=== PATIENT | male | born 1995 | race Caucasian/White ===

== ENCOUNTER 2018-09-08 18:51 | Emergency (ER) | payer OTHER ==
--- NOTE | 2018-09-08 20:28 | EDM.PDOC ---
ED HPI GENERAL MEDICAL PROBLEM - General Chief Complaint: Chest Pain Stated Complaint: CHEST PAIN SOB Time Seen by Provider: 09/08/18 19:16 Source of Information: Reports: Patient, RN Notes Reviewed, Other (Coworker) History Limitations: Reports: No Limitations - History of Present Illness INITIAL COMMENTS - FREE TEXT/NARRATIVE: The patient states that he went to bed around 22:00, then developed nausea, vomiting, and lightheadedness when upright. He states that his abdomen felt like "a knot". He went to work today, and worked hard, but felt short of breath , nauseated, and vomited 2 or 3 times. The patient states that he works outside , and the weather has been hot recently. He denies feeling thirsty. No recent watery diarrhea. No recent bad tasting or spoiled food. No recent antibiotics. No recent travel. No similarly ill close contacts. Here in the ED, the patient states that he has some nausea, and his sternum feels tight. The patient's PCP is in [place], [place]. Chest Pain Score (Numeric/FACES): 5 - Related Data Allergies Allergy/AdvReac Type Severity Reaction Status Date / Time No Known Allergies Allergy Verified 09/08/18 19:00 Home Meds: Home Meds . [No Known Home Meds] 09/08/18 [History] Past Medical History - Past Health History Medical/Surgical History: Denies Medical/Surgical History Social & Family History - Tobacco Use Smoking Status *Q: Former Smoker Years of Tobacco use: 3 Packs/Tins Daily: 0.5 Month/Year Tobacco Last Used: Quit 09/03/2018 - Caffeine Use Caffeine Use: Reports: Energy Drinks - Alcohol Use Alcohol Use History: Yes Alcohol Use Frequency: Socially (to excess on occasion) - Recreational Drug Use Recreational Drug Use: Yes Drug Use in Last 12 Months: Yes Recreational Drug Type: Reports: Marijuana/Hashish (last smoked August 2018) Recreational Drug Use Frequency: Socially - Living Situation & Occupation Living situation: Reports: Single, Other (with friends) Occupation: Employed ([employer]) ED ROS GENERAL - Review of Systems Review Of Systems: ROS reveals no pertinent complaints other than HPI. ED EXAM, GENERAL - Physical Exam Exam: See Below Exam Limited By: No Limitations General Appearance: Alert, WD/WN, No Apparent Distress Eye Exam: Bilateral Eye: EOMI, Normal Inspection Ears: Normal External Exam, Hearing Grossly Normal Nose: Normal Inspection Throat/Mouth: Normal Inspection, Normal Lips, Normal Voice, No Airway Compromise Head: Atraumatic, Normocephalic Neck: Normal Inspection, Full Range of Motion Respiratory/Chest: No Respiratory Distress, Lungs Clear, Normal Breath Sounds, No Accessory Muscle Use, Chest Non-Tender (to medial right pectoralis muscle, and pain not reproducible with pressing hands together in front of the chest or crossing the right arm across the chest), Other (Pectus excavatum) Cardiovascular: Normal Peripheral Pulses, Regular Rate, Rhythm, No Edema, No Gallop, No JVD, No Murmur, No Rub Peripheral Pulses: 4+: Radial (L), Radial (R) GI/Abdominal: Normal Bowel Sounds, Soft, Non-Tender, No Organomegaly, No Distention, No Abnormal Bruit, No Mass (Male) Exam: Deferred Rectal (Males) Exam: Deferred Back Exam: Normal Inspection, Full Range of Motion, NT Extremities: Normal Inspection, Normal Range of Motion, No Pedal Edema, Normal Capillary Refill Neurological: Alert, Oriented, Normal Cognition, No Motor/Sensory Deficits Psychiatric: Normal Affect Skin Exam: Warm, Dry, Intact, Normal Color, No Rash EKG INTERPRETATION EKG Date: 09/08/18 Time: 19:58 Rhythm: NSR Rate (Beats/Min): 60 [place]: Normal P-Wave: Enlarged (Possible LAE) QRS: Wide (Nonspecific intraventricular conduction delay) ST-T: Normal (J-point elevation/early repolarization respect to a healthy heart for age) QT: Normal Comparison: NA - No Prior EKG Course - Vital Signs Last Recorded V/S: Last Vital Signs Temp 36.8 C 09/08/18 18:57 Pulse 82 09/08/18 18:57 Resp 16 09/08/18 18:57 BP 141/85 H 09/08/18 18:57 Pulse Ox 98 09/08/18 18:57 Orthostatic Blood Pressure [ 129/79 Standing] Orthostatic Blood Pressure [ 136/78 Sitting] Orthostatic Blood Pressure [ 139/59 Supine] - Orders/Labs/Meds Labs: Laboratory Tests 09/08/18 09/08/18 09/08/18 Range/Units 19:00 19:00 19:00 WBC 10.12 H (4.23-9.07) K/mm3 RBC 5.42 (4.63-6.08) M/mm3 Hgb 16.5 (13.7-17.5) gm/L Hct 45.4 (40.1-51.0) % MCV 83.8 (79.0-92.2) fl MCH 30.4 (25.7-32.2) pg MCHC 36.3 H (32.2-35.5) g/dl RDW Std Deviation 38.9 (35.1-43.9) fL Plt Count 304 (163-337) K/mm3 MPV 9.5 (9.4-12.3) fl Neutrophils % (Manual) 69 H (40-60) % Band Neutrophils % 0 (0-10) % Lymphocytes % (Manual) 25 (20-40) % Atypical Lymphs % 0 % Monocytes % (Manual) 2 (2-10) % Eosinophils % (Manual) 2 (0.8-7.0) % Basophils % (Manual) 2 H (0.2-1.2) Platelet Estimate Adequate Plt Morphology Comment Normal RBC Morph Comment Normal D-Dimer, Quantitative < 0.19 L (0.19-0.50) mg/L Sodium 139 (136-145) mEq/L Potassium 3.8 (3.5-5.1) mEq/L Chloride 104 (98-107) mEq/L Carbon Dioxide 20 L (21-32) mEq/L Anion Gap 18.8 H (5-15) BUN 18 (7-18) mg/dL Creatinine 1.2 (0.7-1.3) mg/dL Est Cr Clr Drug Dosing 107.78 mL/min Estimated GFR (MDRD) > 60 (>60) mL/min BUN/Creatinine Ratio 15.0 (14-18) Glucose 94 (74-106) mg/dL Calcium 10.0 (8.5-10.1) mg/dL Magnesium 1.9 (1.8-2.4) mg/dl Total Bilirubin 1.7 H (0.2-1.0) mg/dL AST 30 (15-37) U/L ALT 27 (16-63) U/L Alkaline Phosphatase 72 (46-116) U/L Total Protein 8.7 H (6.4-8.2) g/dl Albumin 5.5 H (3.4-5.0) g/dl Globulin 3.2 gm/dL Albumin/Globulin Ratio 1.7 (1-2) Urine Color (Yellow) Urine Appearance (Clear) Urine pH (5.0-8.0) Ur Specific [place] (1.005-1.030) Urine Protein (Negative) Urine Glucose (UA) (Negative) Urine Ketones (Negative) Urine Occult Blood (Negative) Urine Nitrite (Negative) Urine Bilirubin (Negative) Urine Urobilinogen (0.2-1.0) Ur Leukocyte Esterase (Negative) Urine RBC (0-5) /hpf Urine WBC (0-5) /hpf Ur Squamous Epith Cells (0-5) /hpf Urine Bacteria (FEW) /hpf Urine Mucus (FEW) /hpf 09/08/18 Range/Units 21:21 WBC (4.23-9.07) K/mm3 RBC (4.63-6.08) M/mm3 Hgb (13.7-17.5) gm/L Hct (40.1-51.0) % MCV (79.0-92.2) fl MCH (25.7-32.2) pg MCHC (32.2-35.5) g/dl RDW Std Deviation (35.1-43.9) fL Plt Count (163-337) K/mm3 MPV (9.4-12.3) fl Neutrophils % (Manual) (40-60) % Band Neutrophils % (0-10) % Lymphocytes % (Manual) (20-40) % Atypical Lymphs % % Monocytes % (Manual) (2-10) % Eosinophils % (Manual) (0.8-7.0) % Basophils % (Manual) (0.2-1.2) Platelet Estimate Plt Morphology Comment RBC Morph Comment D-Dimer, Quantitative (0.19-0.50) mg/L Sodium (136-145) mEq/L Potassium (3.5-5.1) mEq/L Chloride (98-107) mEq/L Carbon Dioxide (21-32) mEq/L Anion Gap (5-15) BUN (7-18) mg/dL Creatinine (0.7-1.3) mg/dL Est Cr Clr Drug Dosing mL/min Estimated GFR (MDRD) (>60) mL/min BUN/Creatinine Ratio (14-18) Glucose (74-106) mg/dL Calcium (8.5-10.1) mg/dL Magnesium (1.8-2.4) mg/dl Total Bilirubin (0.2-1.0) mg/dL AST (15-37) U/L ALT (16-63) U/L Alkaline Phosphatase (46-116) U/L Total Protein (6.4-8.2) g/dl Albumin (3.4-5.0) g/dl Globulin gm/dL Albumin/Globulin Ratio (1-2) Urine Color Mariana H (Yellow) Urine Appearance Clear (Clear) Urine pH 5.5 (5.0-8.0) Ur Specific [place] > or = 1.030 (1.005-1.030) Urine Protein 1+ H (Negative) Urine Glucose (UA) Negative (Negative) Urine Ketones Trace H (Negative) Urine Occult Blood Negative (Negative) Urine Nitrite Negative (Negative) Urine Bilirubin 1+ H (Negative) Urine Urobilinogen 0.2 (0.2-1.0) Ur Leukocyte Esterase Negative (Negative) Urine RBC 0-5 (0-5) /hpf Urine WBC 0-5 (0-5) /hpf Ur Squamous Epith Cells 5-10 H (0-5) /hpf Urine Bacteria Rare (FEW) /hpf Urine Mucus Many H (FEW) /hpf - Re-Assessments/Exams Free Text/Narrative Re-Assessment/Exam: 09/08/18 20:56 2-view chest radiograph reviewed. The cardiac silhouette is within normal limits. No pulmonary vascular congestion. No pleural effusions. No focal infiltrate. No pneumothorax. Pectus excavatum is noted. Formal read per the Radiologist pending. 09/08/18 21:37 The patient is not orthostatic. 09/08/18 22:41 Test results discussed with the patient and his coworker. Today's workup is grossly unremarkable, and does not explain the cause of his symptoms. I will discharge him home with an [facility] prescription for Zofran. The patient tells me that he will be returning home to [place], [place] on Saturday , 09/10/2018. I recommended that if he is still feeling poorly, that he follow-up with his PCP there at that time. Departure - Departure Time of Disposition: 22:43 Disposition: Home, Self-Care 01 Condition: Good Clinical Impression: Chest pain of uncertain etiology, Shortness of breath, Nausea and vomiting - Discharge Information *PRESCRIPTION DRUG MONITORING PROGRAM REVIEWED*: Not Applicable *COPY OF PRESCRIPTION DRUG MONITORING REPORT IN PATIENT ROBIN: Not Applicable Instructions: Nausea and Vomiting, Adult, Nonspecific Chest Pain, [id number] Referrals: PCP,Not In Area [Primary Care Provider] - Forms: ED Department Discharge Additional Instructions: You were seen in the emergency room for chest pain, shortness of breath, lightheadedness when upright, and nausea and vomiting. Workup in the ER included blood work, a urinalysis, a chest x-ray, positional blood pressure checks, and an ECG. Your workup returned essentially unremarkable, and does not explain the cause of your symptoms. You are not dehydrated. You do not have a blood clot in your lungs. You do not have pneumonia. No abnormal rhythms were found on your ECG. A prescription for the anti-nausea medicine Zofran has been provided to you via [facility]. Dissolve one tablet of Zofran on your tongue up to every 8 hours, as needed for nausea/vomiting. Stay adequately hydrated. Gatorade or Powerade are best. If you are still feeling symptomatic when you return home to [place] this 09/10/2018, please follow-up with your primary care physician. If any other problems, please do not hesitate to return to the ER.
--- NOTE | 2018-09-09 07:45 | CR ---
Chest: Two views of the chest were obtained. Comparison: No prior chest x-ray. Heart size and mediastinum are normal. Lungs are clear. Minimal scoliosis noted within the spine. Impression: 1. Minimal scoliosis. Nothing acute is seen on two-view chest x-ray. Diagnostic code #2
== END 2018-09-08 23:00 | disposition home or self-care (01) ==
LOC: JD.ED 18:51
DX: R11.2 Nausea with vomiting, unspecified (principal); R07.9 Chest pain, unspecified; R06.02 Shortness of breath; Z87.891 Personal history of nicotine dependence
CPT/HCPCS: 36415; 71046; 71046-26; 80053; 81001; 83735; 85007; 85027; 85379; 93005; 99285-25